=== PATIENT | female | born 1940 | race Caucasian/White ===

== ENCOUNTER → 2016-07-11 | Outpatient (CLI) | payer OTHER ==
--- NOTE | 2016-07-11 16:05 | MA ---
CORRECTED ORDER Screening Digital Mammogram, With iCAD Analysis Clinical Indications: Routine screening. Pain and palpable asymmetry at the lumpectomy site in the upper outer posterior left breast. Technique: Standard cephalocaudal projections are obtained. Digital breast tomosynthesis was performed in the MLO projection, with reconstruction at 1.0- mm slice thickness and composite MLO views reconstructed. A skin marker is placed over the palpable area corresponding to the lumpectomy site. This examination is processed by the iCAD computer aided detection system. Comparison: July 2015, June 2015, March 2014, October 2013, September 2013, September 2012, July 2011. Breast Density: Type B; Scattered fibroglandular densities. Findings: CAD was reviewed. There is architectural change at the lumpectomy site. The targeted microcalcifications were removed. The right breast is stable in appearance. Impression: Palpable area in the left breast requires further evaluation, BI- RADS 0. Recommendation: Targeted left breast ultrasound, which will be subsequently performed today. [facility] will send a result letter to the patient. The patient's information is entered into a reminder system with a target due date for her next mammogram. 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
--- NOTE | 2016-07-11 16:25 | US ---
Left Breast Ultrasound History: Evaluate palpable region at the lumpectomy site in the upper outer posterior left breast. Technique: Longitudinal and transverse images were obtained utilizing a 15-MHz transducer. Color Do ppler evaluation is employed for assessment of vascularity. The examination is interpreted in conjun ction with diagnostic mammography performed earlier today. Findings: The palpable area is easily identified on physical examination. Corresponding to the palp able area, there is a rounded hypoechoic solid nodule, measuring 2.9 cm in diameter. There is no int ernal flow and the appearance is consistent with post lumpectomy/postradiation scarring. There is no dominant fluid collection to suggest persistent hematoma or seroma.. Impression: Benign findings when considering mammographic and sonographic assessment, BI-RADS 2. Recommendation: Resume routine mammographic screening in one year as long as physical examination is stable. A verbal report was given to the patient. [facility] will send a result letter to the patient.
== END ==
LOC: FIMAGING 14:59
PROVIDERS: ATTEND Internal Medicine Hematology & Oncology
DX: Z12.31 Encounter for screening mammogram for malignant neoplasm of breast (principal); R92.8 Other abnormal and inconclusive findings on diagnostic imaging of breast
CPT/HCPCS: 76641; G0204; G0279

== ENCOUNTER → 2017-05-02 | Outpatient (CLI) | payer OTHER | LOC: FIMAGING 11:28 | PROVIDERS: ATTEND Internal Medicine | DX: R05 Cough (principal); I51.7 Cardiomegaly; C18.9 Malignant neoplasm of colon, unspecified; C50.919 Malignant neoplasm of unspecified site of unspecified female breast ==

== ENCOUNTER → 2017-06-20 | Outpatient (CLI) | payer OTHER | LOC: FIMAGING 09:23 | PROVIDERS: ATTEND Internal Medicine Gastroenterology | DX: K59.1 Functional diarrhea (principal) | CPT/HCPCS: 82397-90; 82941-90; 83520-90 ==

== ENCOUNTER → 2017-07-11 | Outpatient (CLI) | payer OTHER | LOC: FIMAGING 10:25 | PROVIDERS: ATTEND Internal Medicine Hematology & Oncology | DX: Z12.31 Encounter for screening mammogram for malignant neoplasm of breast (principal); Z85.3 Personal history of malignant neoplasm of breast ==

== ENCOUNTER → 2018-08-13 | Outpatient (CLI) | payer OTHER | LOC: FIMAGING 11:29 | PROVIDERS: ATTEND Internal Medicine Hematology & Oncology | DX: Z12.31 Encounter for screening mammogram for malignant neoplasm of breast (principal); Z85.3 Personal history of malignant neoplasm of breast ==

== ENCOUNTER → 2018-09-07 | Outpatient (CLI) | payer OTHER | LOC: FIMAGING 12:18 | PROVIDERS: ATTEND Internal Medicine Hematology & Oncology | DX: Z13.820 Encounter for screening for osteoporosis (principal); M81.0 Age-related osteoporosis without current pathological fracture; Z78.0 Asymptomatic menopausal state ==